=== PATIENT | male | born 1955 | race Caucasian/White ===

== ENCOUNTER 2023-12-04 16:10 | Emergency (ER) | payer MEDICARE, OTHER ==
[~2023-12-04] VITALS: Ht 180.3 cm; Wt 90.9 kg
[2023-12-04 17:39] LABS: BASOPHILS # (AUTO) 0.1 X10'3 (0-0.2); BASOPHILS % (AUTO) 0.6 % (0-1); EOSINOPHILS # (AUTO) 0.4 X10'3 (0-0.9); EOSINOPHILS % (AUTO) 3.8 % (0-6); LYMPHOCYTES # (AUTO) 3.6 X10'3 (1.1-4.8); LYMPHOCYTES % (AUTO) 35.9 % (21-51); MEAN CORPUSCULAR HEMOGLOBIN 29.6 PG (27.0-31.0); MEAN CORPUSCULAR HGB CONC 33.5 g/dL (33.0-36.5); MEAN CORPUSCULAR VOLUME 88.4 FL (78-98); MEAN PLATELET VOLUME 8.2 FL (7.4-10.4); MONOCYTES # (AUTO) 0.8 X10'3 (0-0.9); MONOCYTES % (AUTO) 7.5 % (2-12); NEUTROPHILS # (AUTO) 5.3 X10'3 (1.8-7.7); NEUTROPHILS % (AUTO) 52.2 % (42-75); PLATELET COUNT 326 X10'3 (140-440); RED BLOOD COUNT 5.09 X10'6 (4.70-6.10); RED CELL DISTRIBUTION WIDTH 13.6 % (11.5-14.5); WHITE BLOOD COUNT 10.1 X10'3 (4.5-11.0)
[2023-12-04 17:55] LABS: ANION GAP 10 (8-16); BLOOD UREA NITROGEN 12 MG/DL (7-18); BUN/CREATININE RATIO 10.4 (10.0-20.0); CALCIUM 9.2 MG/DL (8.5-10.1); CHLORIDE 100 MMOL/L (99-107); CREATININE 1.15 MG/DL (0.60-1.10); GLUCOSE 227 MG/DL (70-104); MAGNESIUM 1.8 MG/DL (1.5-2.4); POTASSIUM 4.1 MMOL/L (3.5-5.1); PRO BRAIN NATRIURETIC PEPTIDE 31 PG/ML (0-125); SODIUM 136 MMOL/L (135-145); TOTAL CARBON DIOXIDE 26.3 MMOL/L (24-32); eCRCL 66 ML/MIN; eGFR 63 ML/MIN
[2023-12-04 19:17] LABS: FREE T4 (FREE THYROXINE) 1.34 NG/DL (0.73-1.40); THYROID STIMULATING HORMONE 1.57 ulU/ml (0.34-4.50)
[2023-12-04 19:26] VITALS: BP 145/90; PULSE 90; RESP 15; TEMP 98.4; O2SAT 99
== END 2023-12-04 19:28 | disposition home or self-care (01) ==
LOC: ER 16:11
DX: R41.0 Disorientation, unspecified (principal); Z71.1 Person with feared health complaint in whom no diagnosis is made
CPT/HCPCS: 36415; 70450; 71045; 80048; 83605; 83735; 83880; 84145; 84439; 84443; 84484; 85025; 87040; 93005; 99285